=== PATIENT | male | born 1965 | race Caucasian/White ===

== ENCOUNTER → 2018-06-19 | Emergency (ER) | payer MEDICARE, MEDICAID ==
[~2018-06-19] VITALS: Ht 182.9 cm; Wt 81.6 kg
[~2018-06-19] MED LIST: DiphenhydrAMINE 50mg/ml Inj IVP ONE; UNOBMED
--- NOTE | 2018-06-19 17:10 | NUR ---
ED Nurse Note: pt brought by [facility] from [place] due to SI. per pt, wants to cut himself. pt recently discharge from [facility] for same sx. AAO x4. respirations even and non-labored noted. [employer] put him on 5150 hold. RN made verbal contract with pt to stay in safe. pt agreed to not hurt himself and hurt others. pt denies hearing voices or seeing things. pt also c/o itchness and rashes all over the body. contact precaution. will wait for the further order.
[2018-06-19 17:14] VITALS: BP 112/69
--- NOTE | 2018-06-19 17:20 | NUR ---
ED Nurse Note: pt cleaned and changed. blanket provided for comfort.
--- NOTE | 2018-06-19 17:30 | NUR ---
ED Nurse Note: all belonings locked in psych locker #3.
--- NOTE | 2018-06-19 17:45 | NUR ---
ED Nurse Note: pt vomited at the bed side. notified to Dr. Long. will give meds.
[2018-06-19 17:49] LABS: BASOPHILS % (AUTO) 0.8 % (0.0-2.0); HEMATOCRIT 41.9 % (42.0-52.0); HEMOGLOBIN 14.6 G/DL (14.2-18.0); LYMPHOCYTES % (AUTO) 14.5 % (20.0-45.0); MEAN CORPUSCULAR VOLUME 89 FL (80-99); MONOCYTES % (AUTO) 7.6 % (1.0-10.0); NEUTROPHILS % (AUTO) 76.2 % (45.0-75.0); PLATELET COUNT 327 K/UL (150-450); RED BLOOD COUNT 4.71 M/UL (4.70-6.10); RED CELL DISTRIBUTION WIDTH 11.3 % (11.6-14.8); WHITE BLOOD COUNT 16.2 K/UL (4.8-10.8)
[2018-06-19 17:59] LABS: ANION GAP 14 mmol/L (5-15); BLOOD UREA NITROGEN 5 mg/dL (7-18); CALCIUM 9.7 MG/DL (8.5-10.1); CARBON DIOXIDE 24 MMOL/L (21-32); CHLORIDE 96 MMOL/L (98-107); CREATININE 0.9 MG/DL (0.55-1.30); POTASSIUM 3.6 MMOL/L (3.5-5.1); SODIUM 134 MMOL/L (136-145)
[2018-06-19 18:03] LABS: ALANINE AMINOTRANSFERASE 33 U/L (12-78); ALBUMIN 4.3 G/DL (3.4-5.0); ALBUMIN/GLOBULIN RATIO 1.3 (1.0-2.7); ALKALINE PHOSPHATASE 106 U/L (46-116); ASPARTATE AMINO TRANSFERASE 38 U/L (15-37); BILIRUBIN,TOTAL 0.6 MG/DL (0.2-1.0); CREATINE KINASE 843 U/L (26-308)
[2018-06-19 18:07] LABS: APPEARANCE,URINE CLEAR; BILIRUBIN, URINE NEGATIVE (NEGATIVE); COLOR,URINE PALE YELLOW; GLUCOSE, URINE (UA) NEGATIVE (NEGATIVE); KETONES,URINE 2+ (NEGATIVE); LEUKOCYTE ESTERASE ,URINE NEGATIVE (NEGATIVE); NITRITE,URINE NEGATIVE (NEGATIVE); PH,URINE 7 (4.5-8.0); PROTEIN,URINE NEGATIVE (NEGATIVE); UROBILINOGEN,URINE NORMAL MG/DL (0.0-1.0)
--- NOTE | 2018-06-19 18:39 | Emergency Room Report ---
History of Present Illness General Chief Complaint: Behavioral Complaint Source: Patient (Dayne Long MD) Present Illness HPI Patient presents with 2 problems. One is a has itching and lesions all over his abdomen. He states he's been treated twice with permethrin or something else for scabies. He has two hospital bands that he says where his visits for this. He states the itching is severe. No pain. The patient also presents with suicidal ideation. He states he supposed be taking 450 mg Wellbutrin and also Zyprexa. He was hospitalized June 03 for this problem. He hasn't been taking his medication after discharge. No fevers, chills, chest pain, palpitations, vomiting, diarrhea, dysuria, abdominal pain, shortness of breath, depression, visual changes, headache. (Dayne Long MD) Allergies: Coded Allergies: CHLORPROMAZINE (Verified Allergy, Unknown, 06/19/18) Patient History Past Medical History: see triage record Social History: Denies: smoking, alcohol use, drug use Social History Narrative homeless Reviewed Nursing Documentation: PMH: Agreed; PSxH: Agreed (Dayne Long MD) Nursing Documentation-PMH Past Medical History: No History, Except For History Of Psychiatric Problem: Yes - depression (Dayne Long MD) Review of Systems All Other Systems: negative except mentioned in HPI (Dayne Long MD) Physical Exam Vital Signs Date Time Temp Pulse Resp B/P (MAP) Pulse Ox O2 Delivery O2 Flow Rate FiO2 06/19/18 17:04 99.0 92 18 112/69 98 Mechanical Ventilator Not on mechanical ventilator Sp02 EP Interpretation: reviewed, normal General Appearance: no apparent distress, alert, GCS 15, non-toxic, thin Head: normocephalic Eyes: bilateral eye normal inspection, bilateral eye PERRL, bilateral eye EOMI ENT: moist mucus membranes Neck: supple Respiratory: lungs clear, normal breath sounds Cardiovascular #1: regular rate, rhythm Cardiovascular #2: 2+ radial (R) Gastrointestinal: normal inspection, normal bowel sounds, non tender, no mass, non-distended, scaphoid Musculoskeletal: back normal, gait/station normal, normal range of motion Neurologic: alert, grossly normal, oriented - X2 Psychiatric: depressed affect Suicide Risk Assessment: Suicidal Ideation: Yes Had intent to initiate attempt: Yes Pt's plan for suicide attempt: Yes Has means to complete attempt: No Skin: warm/dry, other - exciriated lesions abdomen (Dayne Long MD) Medical Decision Making Diagnostic Impression: Primary Impression: Suicidal ideation Additional Impressions: Leukocytosis Qualified Codes: D72.828 - Other elevated white blood cell count Post treatment for scabies ER Course Patient presents with 2 problems. One is a rash on his abdomen and torso. This appears to be scabies - or a reaction to having scabies in the past. He states he's been treated twice for this with lotion. He will be treated again at this time. The second problem is suicidal ideation. He does have a plan. He does not have razor with him however he needs to be evaluated psychiatrically and possibly admitted if he continues to feel this way. He'll be evaluated with EKG , chest x-ray and labs. The patient will be given his usual psychiatric medication here. Patient vomited once. Zofran given. Initial labs with leukocytosis and elevated CK. Tox neg Repeat labs with resolution of leukocytosis and decreasing CK. Medically clear for psychiatric evaluation and hospitalization. Signed out to Dr. Pierre. Laboratory Tests Test 06/19/18 17:30 06/19/18 17:40 06/19/18 21:50 White Blood Count 16.2 K/UL (4.8-10.8) H 10.0 K/UL (4.8-10.8) Red Blood Count 4.71 M/UL (4.70-6.10) 4.46 M/UL (4.70-6.10) L Hemoglobin 14.6 G/DL (14.2-18.0) 13.9 G/DL (14.2-18.0) L Hematocrit 41.9 % (42.0-52.0) L 40.4 % (42.0-52.0) L Mean Corpuscular Volume 89 FL (80-99) 91 FL (80-99) Mean Corpuscular Hemoglobin 30.9 PG (27.0-31.0) 31.2 PG (27.0-31.0) H Mean Corpuscular Hemoglobin Concent 34.7 G/DL (32.0-36.0) 34.5 G/DL (32.0-36.0) Red Cell Distribution Width 11.3 % (11.6-14.8) L 11.6 % (11.6-14.8) Platelet Count 327 K/UL (150-450) 319 K/UL (150-450) Mean Platelet Volume 5.1 FL (6.5-10.1) L 5.4 FL (6.5-10.1) L Neutrophils (%) (Auto) 76.2 % (45.0-75.0) H 64.2 % (45.0-75.0) Lymphocytes (%) (Auto) 14.5 % (20.0-45.0) L 22.4 % (20.0-45.0) Monocytes (%) (Auto) 7.6 % (1.0-10.0) 11.0 % (1.0-10.0) H Eosinophils (%) (Auto) 1.0 % (0.0-3.0) 1.7 % (0.0-3.0) Basophils (%) (Auto) 0.8 % (0.0-2.0) 0.7 % (0.0-2.0) Sodium Level 134 MMOL/L (136-145) L Potassium Level 3.6 MMOL/L (3.5-5.1) Chloride Level 96 MMOL/L (98-107) L Carbon Dioxide Level 24 MMOL/L (21-32) Anion Gap 14 mmol/L (5-15) Blood Urea Nitrogen 5 mg/dL (7-18) L Creatinine 0.9 MG/DL (0.55-1.30) Estimate Glomerular Filtration Rate > 60 mL/min (>60) Glucose Level 106 MG/DL (74-106) Calcium Level 9.7 MG/DL (8.5-10.1) Total Bilirubin 0.6 MG/DL (0.2-1.0) Aspartate Amino Transferase (AST) 38 U/L (15-37) H Alanine Aminotransferase (ALT) 33 U/L (12-78) Alkaline Phosphatase 106 U/L (46-116) Total Creatine Kinase 843 U/L (26-308) H 721 U/L (26-308) H Troponin I 0.003 ng/mL (0.000-0.056) Total Protein 7.5 G/DL (6.4-8.2) Albumin 4.3 G/DL (3.4-5.0) Globulin 3.2 g/dL Albumin/Globulin Ratio 1.3 (1.0-2.7) Salicylates Level 3.5 ug/mL (2.8-20) Acetaminophen Level < 2 MCG/ML (10-30) L Serum Alcohol < 3 mg/dL Urine Color Pale yellow Urine Appearance Clear Urine pH 7 (4.5-8.0) Urine Specific [place] 1.005 (1.005-1.035) Urine Protein Negative (NEGATIVE) Urine Glucose (UA) Negative (NEGATIVE) Urine Ketones 2+ (NEGATIVE) H Urine Blood Negative (NEGATIVE) Urine Nitrite Negative (NEGATIVE) Urine Bilirubin Negative (NEGATIVE) Urine Urobilinogen Normal MG/DL (0.0-1.0) Urine Leukocyte Esterase Negative (NEGATIVE) Urine Opiates Screen Negative (NEGATIVE) Urine Barbiturates Screen Negative (NEGATIVE) Phencyclidine (PCP) Screen Negative (NEGATIVE) Urine Amphetamines Screen Negative (NEGATIVE) Urine Benzodiazepines Screen Negative (NEGATIVE) Urine Cocaine Screen Negative (NEGATIVE) Urine Marijuana (THC) Screen Negative (NEGATIVE) (Dayne Long MD) ER Course Patient has been medically cleared for psychiatric evaluation (Inderjit Raines MD) EKG Diagnostic Results Rate: normal Rhythm: NSR ST Segments: no acute changes - LAE (Dayne Long MD) Rhythm Strip Diag. Results EP Interpretation: yes Rhythm: NSR, no PVC's, no ectopy (Dayne Long MD) Last Vital Signs Date Time Temp Pulse Resp B/P (MAP) Pulse Ox O2 Delivery O2 Flow Rate FiO2 06/20/18 01:10 98.7 91 16 116/71 100 Room Air Status: improved (Dayne Long MD) Status: improved (Inderjit Raines MD) Disposition: XFER TO PSYCH HOSP/UNIT Condition: Stable Referrals: NON PHYSICIAN (PCP) Dayne Long MD Jun 19, 2018 18:39 Inderjit Raines MD Jun 20, 2018 12:32
--- NOTE | 2018-06-19 19:00 | NUR ---
ED Nurse Note: report received from hawa baker pt vss, pt is currently asleep in bed skin intact, pt is on room air 100%
[2018-06-19 19:04] VITALS: BP 115/71
[2018-06-19 21:04] VITALS: BP 118/76
--- NOTE | 2018-06-19 21:50 | NUR ---
ED Nurse Note: repeat labs have been drawn, pt is currently sleeping. pt is on contact precaution due to scabies. pt denies pain and is in no acute distress at the moment. pt is aox4, and on room air, vss at the moment
[2018-06-19 22:19] LABS: BASOPHILS % (AUTO) 0.7 % (0.0-2.0); EOSINOPHILS % (AUTO) 1.7 % (0.0-3.0); HEMATOCRIT 40.4 % (42.0-52.0); HEMOGLOBIN 13.9 G/DL (14.2-18.0); LYMPHOCYTES % (AUTO) 22.4 % (20.0-45.0); MEAN CORPUSCULAR VOLUME 91 FL (80-99); NEUTROPHILS % (AUTO) 64.2 % (45.0-75.0); PLATELET COUNT 319 K/UL (150-450); RED BLOOD COUNT 4.46 M/UL (4.70-6.10); RED CELL DISTRIBUTION WIDTH 11.6 % (11.6-14.8)
[2018-06-19 22:32] LABS: CREATINE KINASE 721 U/L (26-308)
[2018-06-19 23:05] VITALS: BP 112/67
--- NOTE | 2018-06-19 23:24 | NUR ---
ED Nurse Note: pt denies SI at the moment pt has no plan. pt is in bed resting, pt is continent on room air. pt shows no distress. pt vss.
[2018-06-20 01:10] VITALS: BP 116/71
--- NOTE | 2018-06-20 01:39 | NUR ---
ED Nurse Note: pt has been cooperative and sleeping in bed.
[2018-06-20 02:57] VITALS: BP 115/74
[2018-06-20 05:21] VITALS: BP 111/79
--- NOTE | 2018-06-20 06:31 | NUR ---
ED Nurse Note: no changes with pt. pt still asleep. pt breakfast has been ordered.
--- NOTE | 2018-06-20 07:39 | NUR ---
HAND-OFF: Report given to ROD Keenan.
[2018-06-20 07:50] VITALS: BP 111/66
--- NOTE | 2018-06-20 07:57 | NUR ---
ED Nurse Note: Received patient in bed. Patient is stable in bed, in no acute distress. alert and awake, patient is eating breakfast, from the breakfast tray we provided. patient denies any suicidal ideation at the moment patient reports he has no plan. vitals stable, see flowsheet.
[2018-06-20 09:53] VITALS: BP 110/72
--- NOTE | 2018-06-20 12:06 | NUR ---
ED Nurse Note: Dr. Chance by the beside. patient is alert and awake
--- NOTE | 2018-06-20 12:27 | Consultation ---
History of Present Illness General Chief Complaint: Behavioral Complaint Present Illness HPI 53 yo male with hx of schizophrenia admitted for si the pt is hearing voices and has suicidal thoughts.the pt has itching and lesions all over his abdomen. the pt has been treated twice with permethrin or something else for scabies. the pt stated that he has suicidal with intention to hang self Allergies: Coded Allergies: CHLORPROMAZINE (Verified Allergy, Unknown, 06/19/18) Medication History Miscellaneous Medications Unable to Obtain Medications (Unable To Obtain Meds), (Reported) Patient History History Provided By: Patient, Medical Record Healthcare decision maker Resuscitation status Advanced Directive on File Review of Systems Psychiatric: Reports: prior hx, anxiety, depressed feelings, emotional problems , SI Physical Exam General Appearance: WD/WN, alert Neurologic: oriented x 3, responsive, depressed affect Last 24 Hour Vital Signs Date Time Temp Pulse Resp B/P (MAP) Pulse Ox O2 Delivery O2 Flow Rate FiO2 06/20/18 09:53 97.3 71 17 110/72 95 Room Air 06/20/18 07:50 97.3 74 18 111/66 93 Room Air 06/20/18 05:21 98.6 84 19 111/79 98 Room Air 06/20/18 02:57 98.6 85 17 115/74 100 Room Air 06/20/18 01:10 98.7 91 16 116/71 100 Room Air 06/19/18 23:05 98.7 84 16 112/67 98 Room Air 06/19/18 21:04 98.8 88 18 118/76 98 Room Air 06/19/18 19:04 98.8 86 18 115/71 100 Room Air 06/19/18 17:14 92 18 Room Air 06/19/18 17:14 99.0 92 18 112/69 98 Room Air 06/19/18 17:04 99.0 92 18 112/69 98 Mechanical Ventilator Intake and Output 06/19/18 06/20/18 19:00 07:00 Intake Total 1000 ml Balance 1000 ml Intake IV Total 1000 ml # Voids 1 Laboratory Tests Test 06/19/18 17:30 06/19/18 17:40 06/19/18 21:50 White Blood Count 16.2 K/UL (4.8-10.8) H 10.0 K/UL (4.8-10.8) Red Blood Count 4.71 M/UL (4.70-6.10) 4.46 M/UL (4.70-6.10) L Hemoglobin 14.6 G/DL (14.2-18.0) 13.9 G/DL (14.2-18.0) L Hematocrit 41.9 % (42.0-52.0) L 40.4 % (42.0-52.0) L Mean Corpuscular Volume 89 FL (80-99) 91 FL (80-99) Mean Corpuscular Hemoglobin 30.9 PG (27.0-31.0) 31.2 PG (27.0-31.0) H Mean Corpuscular Hemoglobin Concent 34.7 G/DL (32.0-36.0) 34.5 G/DL (32.0-36.0) Red Cell Distribution Width 11.3 % (11.6-14.8) L 11.6 % (11.6-14.8) Platelet Count 327 K/UL (150-450) 319 K/UL (150-450) Mean Platelet Volume 5.1 FL (6.5-10.1) L 5.4 FL (6.5-10.1) L Neutrophils (%) (Auto) 76.2 % (45.0-75.0) H 64.2 % (45.0-75.0) Lymphocytes (%) (Auto) 14.5 % (20.0-45.0) L 22.4 % (20.0-45.0) Monocytes (%) (Auto) 7.6 % (1.0-10.0) 11.0 % (1.0-10.0) H Eosinophils (%) (Auto) 1.0 % (0.0-3.0) 1.7 % (0.0-3.0) Basophils (%) (Auto) 0.8 % (0.0-2.0) 0.7 % (0.0-2.0) Sodium Level 134 MMOL/L (136-145) L Potassium Level 3.6 MMOL/L (3.5-5.1) Chloride Level 96 MMOL/L (98-107) L Carbon Dioxide Level 24 MMOL/L (21-32) Anion Gap 14 mmol/L (5-15) Blood Urea Nitrogen 5 mg/dL (7-18) L Creatinine 0.9 MG/DL (0.55-1.30) Estimat Glomerular Filtration Rate > 60 mL/min (>60) Glucose Level 106 MG/DL (74-106) Calcium Level 9.7 MG/DL (8.5-10.1) Total Bilirubin 0.6 MG/DL (0.2-1.0) Aspartate Amino Transf (AST/SGOT) 38 U/L (15-37) H Alanine Aminotransferase (ALT/SGPT) 33 U/L (12-78) Alkaline Phosphatase 106 U/L (46-116) Total Creatine Kinase 843 U/L (26-308) H 721 U/L (26-308) H Troponin I 0.003 ng/mL (0.000-0.056) Total Protein 7.5 G/DL (6.4-8.2) Albumin 4.3 G/DL (3.4-5.0) Globulin 3.2 g/dL Albumin/Globulin Ratio 1.3 (1.0-2.7) Salicylates Level 3.5 ug/mL (2.8-20) Acetaminophen Level < 2 MCG/ML (10-30) L Serum Alcohol < 3 mg/dL Urine Color Pale yellow Urine Appearance Clear Urine pH 7 (4.5-8.0) Urine Specific [place] 1.005 (1.005-1.035) Urine Protein Negative (NEGATIVE) Urine Glucose (UA) Negative (NEGATIVE) Urine Ketones 2+ (NEGATIVE) H Urine Blood Negative (NEGATIVE) Urine Nitrite Negative (NEGATIVE) Urine Bilirubin Negative (NEGATIVE) Urine Urobilinogen Normal MG/DL (0.0-1.0) Urine Leukocyte Esterase Negative (NEGATIVE) Urine Opiates Screen Negative (NEGATIVE) Urine Barbiturates Screen Negative (NEGATIVE) Phencyclidine (PCP) Screen Negative (NEGATIVE) Urine Amphetamines Screen Negative (NEGATIVE) Urine Benzodiazepines Screen Negative (NEGATIVE) Urine Cocaine Screen Negative (NEGATIVE) Urine Marijuana (THC) Screen Negative (NEGATIVE) Height (Feet): 6 Weight (Pounds): 180 Assessment/Plan Problem List: (1) Schizophrenia ICD Codes: F20.9 - Schizophrenia, unspecified SNOMED: [id number] Assessment/Plan the pt is at imminent dts the pt is suicidal and needs higher level of care transfer to psych [facility] admit voluntary to psych unit Nicholas Chance MD Jun 20, 2018 12:26
--- NOTE | 2018-06-20 12:30 | NUR ---
ED Nurse Note: provided lunch tray to the patient.
[2018-06-20 14:47] VITALS: BP 114/76
--- NOTE | 2018-06-20 16:29 | NUR ---
ED Nurse Note: Report given to Mar VELASCO at [facility]. Endorsed all plan of care.
== END ==
LOC: EDBD 17:06 → EMR 17:30
DX: R45.851 Suicidal ideations (principal); D72.829 Elevated white blood cell count, unspecified; B86 Scabies; F32.9 Major depressive disorder, single episode, unspecified; F20.9 Schizophrenia, unspecified; Z88.8 Allergy status to other drugs, medicaments and biological substances
CPT/HCPCS: 36415; 80053; 80307; 81003; 82550; 84484; 85025; 93005; 96361; 96374; 96375; 99284; G0480; J1200; J2405; 80329

== ENCOUNTER 2020-03-29 15:10 | Emergency (ER) | payer MEDICARE, MEDICAID ==
[~2020-03-29] VITALS: Ht 185.4 cm; Wt 86.2 kg
[~2020-03-29 15:10] MED LIST changes: -DiphenhydrAMINE 50mg/ml Inj IVP ONE
[2020-03-29 15:20] VITALS: BP 137/83
[2020-03-29] MEDS ORDERED: BuPROPion SR 150mg tab ORAL ONE (15:30)
[2020-03-29] MEDS ORDERED: Bacitracin Oint UD TOPIC ONE (15:30)
[2020-03-29] MEDS ORDERED: Tetanus/Diptheria/Pertussis IM ONE (15:30)
--- NOTE | 2020-03-29 15:34 | Emergency Room Report ---
History of Present Illness General Chief Complaint: Suicidal Source: Patient, EMS Present Illness HPI The patient presents after having cut his left forearm. He states that the bleeding was minimal. He did this in an attempt to take his own life. He stopped taking Wellbutrin 450 mg daily 7 days ago. He was kicked out of a residential facility and then was hospitalized in your interim. He is not sure the name of the hospital where he was recently hospitalized. The patient denies any numbness in the forearm or hand. He states there was minimal blood loss. He was transported by paramedics to our facility. He is uncertain when his last tetanus vaccination was. History of schizophrenia. The patient is uncertain whether he has been exposed to Covid positive contacts. He claims that he had a fever this morning. He also states that he has been coughing and had some vomiting and diarrhea earlier today. No sore throat, chest pain, palpitations, dysuria, abdominal pain, shortness of breath, joint pain, visual changes, dizziness, headache. 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 Patient History Past Medical History: see triage record, psych hx Social History: Reports: smoking, drug use - in the past Social History Narrative homeless -born in [place] Reviewed Nursing Documentation: PMH: Agreed; PSxH: Agreed Nursing Documentation-PMH History Of Psychiatric Problem: Yes - SCHIZO Review of Systems All Other Systems: negative except mentioned in HPI Physical Exam Vital Signs Date Time Temp Pulse Resp B/P (MAP) Pulse Ox O2 Delivery O2 Flow Rate FiO2 03/29/20 15:11 98.4 90 16 137/83 (101) 98 Room Air Sp02 EP Interpretation: reviewed, normal General Appearance: well appearing, no apparent distress, other - Slightly confused and delusional Head: normocephalic Eyes: bilateral eye normal inspection, bilateral eye PERRL, bilateral eye Scleral Injection ENT: other - Wearing mask Neck: supple Respiratory: lungs clear, normal breath sounds Cardiovascular #1: regular rate, rhythm Cardiovascular #2: 2+ radial (R), 2+ radial (L) - Good capillary fill Gastrointestinal: normal inspection, non-distended Musculoskeletal: back normal, normal range of motion, gait/station normal Neurologic: alert, oriented x3, grossly normal Psychiatric: other - Slightly hyperreligious and delusional Suicide Risk Assessment: Suicidal Ideation: Yes Had intent to initiate attempt: Yes Pt's plan for suicide attempt: Yes Has means to complete attempt: Yes Skin: warm/dry, other - Linear superficial lacerations left forearm Medical Decision Making Diagnostic Impression: Primary Impression: Suicide gesture Qualified Codes: X83.8XXA - Intentional self-harm by other specified means, initial encounter Additional Impressions: Laceration of left forearm Qualified Codes: S51.812A - Laceration without foreign body of left forearm, initial encounter Schizophrenia Qualified Codes: F20.9 - Schizophrenia, unspecified ER Course Patient presents after alleged suicide attempt by cutting his left forearm. He has a history of schizophrenia and has been noncompliant. Differential includes exacerbation of schizophrenia, noncompliance, electrolyte imbalance, forearm lacerations, suicidal ideation amongst others. Patient needs evaluation to be medically clear. In addition to that Wellbutrin will be administered. The lacerations are superficial and the wounds will be cleaned and Steri-Stripped and dressed. A sitter has been ordered. Patient needs psychiatric placement or evaluation. The patient will be evaluated for Covid infection also. EKG no injury. Labs unremarkable. Patient medically clear for psychiatric evaluation. 1820 Improved and sleeping. Signed out to Dr. Pierre. 0191 Laboratory Tests Test 03/29/20 16:34 03/29/20 16:51 Urine Color Pale yellow Urine Appearance Clear Urine pH 6.5 (4.5-8.0) Urine Specific [place] 1.005 (1.005-1.035) Urine Protein Negative (NEGATIVE) Urine Glucose (UA) Negative (NEGATIVE) Urine Ketones Negative (NEGATIVE) Urine Blood Negative (NEGATIVE) Urine Nitrite Negative (NEGATIVE) Urine Bilirubin Negative (NEGATIVE) Urine Urobilinogen Normal MG/DL (0.0-1.0) Urine Leukocyte Esterase Negative (NEGATIVE) Urine Opiates Screen Negative (NEGATIVE) Urine Barbiturates Screen Negative (NEGATIVE) Phencyclidine (PCP) Screen Negative (NEGATIVE) Urine Amphetamines Screen Negative (NEGATIVE) Urine Benzodiazepines Screen Negative (NEGATIVE) Urine Cocaine Screen Negative (NEGATIVE) Urine Marijuana (THC) Screen Negative (NEGATIVE) White Blood Count 8.4 K/UL (4.8-10.8) Red Blood Count 4.63 M/UL (4.70-6.10) L Hemoglobin 14.4 G/DL (14.2-18.0) Hematocrit 40.0 % (42.0-52.0) L Mean Corpuscular Volume 86 FL (80-99) Mean Corpuscular Hemoglobin 31.1 PG (27.0-31.0) H Mean Corpuscular Hemoglobin Concent 36.0 G/DL (32.0-36.0) Red Cell Distribution Width 14.7 % (11.6-14.8) Platelet Count 363 K/UL (150-450) Mean Platelet Volume 6.3 FL (6.5-10.1) L Neutrophils (%) (Auto) 62.1 % (45.0-75.0) Lymphocytes (%) (Auto) 25.0 % (20.0-45.0) Monocytes (%) (Auto) 9.4 % (1.0-10.0) Eosinophils (%) (Auto) 2.3 % (0.0-3.0) Basophils (%) (Auto) 1.1 % (0.0-2.0) Sodium Level 139 MMOL/L (136-145) Potassium Level 4.2 MMOL/L (3.5-5.1) Chloride Level 105 MMOL/L (98-107) Carbon Dioxide Level 30 MMOL/L (21-32) Anion Gap 5 mmol/L (5-15) Blood Urea Nitrogen 14 mg/dL (7-18) Creatinine 0.9 MG/DL (0.55-1.30) Estimated Glomerular Filtration Rate > 60 mL/min (>60) Glucose Level 96 MG/DL (74-106) Calcium Level 8.7 MG/DL (8.5-10.1) Total Bilirubin 0.4 MG/DL (0.2-1.0) Aspartate Amino Transferase (AST) 19 U/L (15-37) Alanine Aminotransferase (ALT) 34 U/L (12-78) Alkaline Phosphatase 96 U/L (46-116) Total Creatine Kinase 117 U/L (26-308) Total Protein 7.2 G/DL (6.4-8.2) Albumin 3.8 G/DL (3.4-5.0) Globulin 3.4 g/dL Albumin/Globulin Ratio 1.1 (1.0-2.7) Salicylates Level 3.4 ug/mL (2.8-20) Acetaminophen Level 2 MCG/ML (10-30) L Serum Alcohol < 3 mg/dL Microbiology Date/Time Source Procedure Growth Status 03/29/20 16:34 Nasopharynx SARS-CoV-2 RdRp Gene Assay - Final Complete EKG Diagnostic Results Rate: normal Rhythm: NSR ST Segments: no acute changes Rhythm Strip Diag. Results EP Interpretation: yes Rhythm: NSR, no PVC's, no ectopy Last Vital Signs Date Time Temp Pulse Resp B/P (MAP) Pulse Ox O2 Delivery O2 Flow Rate FiO2 03/29/20 16:52 98.2 60 19 136/61 100 Room Air Status: improved Disposition: PSYCH HOSP/UNIT Condition: Serious Dayne Long MD Mar 29, 2020 15:34
[2020-03-29 16:52] VITALS: BP 136/61
[2020-03-29 17:15] LABS: ANION GAP 5 mmol/L (5-15); BLOOD UREA NITROGEN 14 mg/dL (7-18); CALCIUM 8.7 MG/DL (8.5-10.1); CARBON DIOXIDE 30 MMOL/L (21-32); CHLORIDE 105 MMOL/L (98-107); CREATININE 0.9 MG/DL (0.55-1.30); POTASSIUM 4.2 MMOL/L (3.5-5.1); SODIUM 139 MMOL/L (136-145)
[2020-03-29 17:19] LABS: ALANINE AMINOTRANSFERASE 34 U/L (12-78); ALBUMIN 3.8 G/DL (3.4-5.0); ALBUMIN/GLOBULIN RATIO 1.1 (1.0-2.7); ALKALINE PHOSPHATASE 96 U/L (46-116); ASPARTATE AMINO TRANSFERASE 19 U/L (15-37); BILIRUBIN,TOTAL 0.4 MG/DL (0.2-1.0); CREATINE KINASE 117 U/L (26-308)
[2020-03-29 18:02] LABS: BASOPHILS % (AUTO) 1.1 % (0.0-2.0); EOSINOPHILS % (AUTO) 2.3 % (0.0-3.0); HEMOGLOBIN 14.4 G/DL (14.2-18.0); MEAN CORPUSCULAR VOLUME 86 FL (80-99); MONOCYTES % (AUTO) 9.4 % (1.0-10.0); NEUTROPHILS % (AUTO) 62.1 % (45.0-75.0); PLATELET COUNT 363 K/UL (150-450); RED BLOOD COUNT 4.63 M/UL (4.70-6.10); RED CELL DISTRIBUTION WIDTH 14.7 % (11.6-14.8); WHITE BLOOD COUNT 8.4 K/UL (4.8-10.8)
[2020-03-29 18:11] LABS: APPEARANCE,URINE CLEAR; BILIRUBIN, URINE NEGATIVE (NEGATIVE); COLOR,URINE PALE YELLOW; GLUCOSE, URINE (UA) NEGATIVE (NEGATIVE); KETONES,URINE NEGATIVE (NEGATIVE); LEUKOCYTE ESTERASE ,URINE NEGATIVE (NEGATIVE); NITRITE,URINE NEGATIVE (NEGATIVE); PH,URINE 6.5 (4.5-8.0); PROTEIN,URINE NEGATIVE (NEGATIVE); UROBILINOGEN,URINE NORMAL MG/DL (0.0-1.0)
[2020-03-29 19:30] VITALS: BP 126/68
[2020-03-29 22:00] VITALS: BP 134/67
[2020-03-30] VITALS: BP 131/65
[2020-03-30 02:17] VITALS: BP 129/68
== END 2020-03-30 02:17 ==
LOC: EDBD 15:10 → EDUNIT# 15:10 → EMR 16:00
DX: S51.812A Laceration without foreign body of left forearm, initial encounter (principal); F20.9 Schizophrenia, unspecified; X78.9XXA Intentional self-harm by unspecified sharp object, initial encounter; Y93.89 Activity, other specified; Y92.9 Unspecified place or not applicable; Z88.8 Allergy status to other drugs, medicaments and biological substances
CPT/HCPCS: 36415; 80053; 80307; 81003; 82550; 85025; 90471; 90715; 93005; 99284; G0480; U0002

== ENCOUNTER 2020-05-16 12:06 | Emergency (ER) | payer MEDICARE, MEDICAID ==
[~2020-05-16] VITALS: Ht 185.4 cm; Wt 83.9 kg
[2020-05-16 12:18] VITALS: BP 118/70
--- NOTE | 2020-05-16 12:20 | NUR ---
ED Nurse Note:pt is here to get his wellbutrin filled, states he's on 450mg daily
--- NOTE | 2020-05-16 12:23 | Emergency Room Report ---
History of Present Illness General Chief Complaint: Medication Refill Source: Patient Present Illness HPI Patient presents requesting a refill of his Wellbutrin. He states he takes 450 mg a day. He denies auditory hallucinations, suicidal or homicidal ideations or intent to harm others. Patient denies exposure to Covid positive contacts. No fevers, chills, sore throat, chest pain, palpitations, nausea, vomiting, diarrhea, dysuria, abdominal pain, shortness of breath, joint pain, rashes, visual changes, dizziness, headache. 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 COVID-19 Screening: Negative COVID-19 COVID-19 Testing Source: nasal Patient History Social History: Reports: smoking; Denies: alcohol use, drug use Social History Narrative Homeless Reviewed Nursing Documentation: PMH: Agreed; PSxH: Agreed Nursing Documentation-PMH Past Medical History: No History, Except For History Of Psychiatric Problem: Yes - depression Review of Systems All Other Systems: negative except mentioned in HPI Physical Exam Vital Signs Date Time Temp Pulse Resp B/P (MAP) Pulse Ox O2 Delivery O2 Flow Rate FiO2 05/16/20 12:08 98.1 92 18 118/70 (86) 98 Room Air Sp02 EP Interpretation: reviewed, normal General Appearance: well appearing, no apparent distress, GCS 15, non-toxic Head: normocephalic Eyes: bilateral eye normal inspection, bilateral eye PERRL, bilateral eye abnormal EOM ENT: other - Wearing a mask Neck: full range of motion, supple Respiratory: normal inspection Cardiovascular #1: regular rate, rhythm Cardiovascular #2: 2+ radial (R) Gastrointestinal: normal inspection Musculoskeletal: gait/station normal Neurologic: alert, grossly normal Psychiatric: mood/affect normal, no suicidal/homicidal ideation Skin: warm/dry, other - Fully dressed Medical Decision Making Homeless Attestation I, The treating physician Dr. Long, have assessed and agree that patient is medically stable for discharge to an outpatient disposition. Diagnostic Impression: Primary Impression: Encounter for medication refill Additional Impression: Schizophrenia Qualified Codes: F20.9 - Schizophrenia, unspecified ER Course Patient presents requesting refill of his Wellbutrin. He denies any psychiatric emergency at this time. Review of systems is essentially negative. Patient provided with prescription for Wellbutrin. Last Vital Signs Date Time Temp Pulse Resp B/P (MAP) Pulse Ox O2 Delivery O2 Flow Rate FiO2 05/16/20 12:51 98.1 78 18 120/68 98 Room Air Status: unchanged Disposition: OTH-HOMELESS Condition: Stable Scripts Bupropion Hcl* (WELLBUTRIN*) 300 Mg Tab.er.24h 450 MG ORAL DAILY for Mood, #30 TAB 0 Refills Prov: Dayne Long MD 05/16/20 Dayne Long MD May 16, 2020 12:23
[2020-05-16] MEDS ORDERED: BUPROPION XL300 MG ORAL (12:24)
--- NOTE | 2020-05-16 12:50 | NUR ---
ED Nurse Note: Pt cleared by health care Provider for discharge. DC instructions/prescription was given and explained to pt and verbalized understanding of teachings. All medical deviecs such as ID band removed. Pt is AAO x4, ambulatory and left with all personal belongings.
[2020-05-16 12:51] VITALS: BP 120/68
== END 2020-05-16 12:50 | disposition home or self-care (01) ==
LOC: EMR 12:30
DX: Z76.0 Encounter for issue of repeat prescription (principal); F20.9 Schizophrenia, unspecified; Z88.8 Allergy status to other drugs, medicaments and biological substances; F17.200 Nicotine dependence, unspecified, uncomplicated
CPT/HCPCS: 99282